=== PATIENT | female | born 1990 | race Caucasian/White ===

== ENCOUNTER → 2017-11-25 | Outpatient (CLI) | payer MEDICAID ==
[2017-04-06 20:45] VITALS: BMI 32.1
[~2017-11-25] MED LIST: ESCI5TAB10 PO; IBUP800T37 PO; IOPAMIDOL 76% 75 ML INFUS BTL 75 ML ONE; OXYC-373 PO; PREN-127 PO
--- NOTE | 2017-11-25 13:07 | RADIOLOGY IMAGING REPORT ---
FACILITY: [facility] PATIENT NAME: Sri Zacarias : 1990 MR: [id number] V: [id number] EXAM DATE: ORDERING PHYSICIAN: DC MATTHEWS TECHNOLOGIST: Location: [facility] - [place] Patient: Sri Zacarias : 1990 Visit/Account:[id number] Date of Sevice: 11/25/2017 HEAD W W/O CONTRAST Provided history: Chronic tension headaches Additional pertinent history: none TECHNIQUE: Imaging was obtained from the skull base through the vertex without intravenous contrast. Source images were reformatted in the coronal sagittal planes. One of the following dose optimization techniques was utilized in the performance of this exam: Autom ated exposure control; adjustment of the mA and/or kV according to the patient's size; or use of an i terative reconstruction technique. Specific details can be referenced in the facility's radiology CT exam operational policy. COMPARISON STUDIES: None FINDINGS: Brain volume: Normal Acute cortical ischemia: None Chronic cortical and ganglionic ischemia: none significant Hemorrhage: None Masses / edema: None White matter: Normal Vessels: Normal Extra-axial: None significant Calvarium / scalp: Negative Skull base: negative Visualized sinuses / orbits: Mild leftward bowing of the nasal septum and small left lateral nasal s eptal spur. No significant inflammatory change. IMPRESSION: Normal CT of the brain. No evidence of mass, acute ischemia or hemorrhage. Report Dictated By: Alfonso Decker MD at 11/25/2017 1:00 PM Report E-Signed By: Alfonso Decker MD at 11/25/2017 1:02 PM WSN:[id number]
== END ==
LOC: CT 07:05
PROVIDERS: ATTEND Family Medicine
DX: G44.229 Chronic tension-type headache, not intractable (principal)
CPT/HCPCS: 70470; Q9967

== ENCOUNTER → 2018-09-24 | Outpatient (CLI) | payer MEDICAID, OTHER ==
[2017-04-06 20:45] VITALS: BMI 32.1
[~2018-09-24] MED LIST changes: -IOPAMIDOL 76% 75 ML INFUS BTL 75 ML ONE
== END ==
LOC: US 07:37
PROVIDERS: ATTEND Family Medicine
DX: I07.1 Rheumatic tricuspid insufficiency (principal); Z82.49 Family history of ischemic heart disease and other diseases of the circulatory system
CPT/HCPCS: 93306